=== PATIENT | male | born 1970 | race Caucasian/White ===

== ENCOUNTER 2022-09-23 11:48 | Emergency (ER) | payer MEDICAID, OTHER ==
[~2022-09-23] VITALS: Ht 167.6 cm; Wt 70.0 kg
[2022-09-23 12:38] LABS: BASOPHILS % 0.6 % (0.0-2.0); EOSINOPHILS % 1.2 % (0.0-5.0); HEMATOCRIT. 41.1 % (42.0-52.0); HEMOGLOBIN. 13.9 g/dL (14.0-18.0); LYMPHOCYTES % 27.7 % (20.0-50.0); MEAN CORPUSCULAR HEMOGLOBIN 30.6 pg (28.0-32.0); MEAN CORPUSCULAR VOLUME 90.6 fL (80.0-94.0); MEAN PLATELET VOLUME 8.7 fl (7.4-10.4); MONOCYTES % 8.3 % (2.0-8.0); NEUTROPHILS % 62.2 % (40.0-76.0); PLATELET 124 x1000/uL (130-400); RED BLOOD CELL COUNT 4.54 mill/uL (4.7-6.1); RED CELL DISTRIBUTION WIDTH 15.6 % (11.6-14.6)
[2022-09-23 12:47] LABS: CHLORIDE 101 mEq/L (98-107)
[2022-09-23 13:02] LABS: CLARITY URINE CLEAR (CLEAR); COLOR URINE YELLOW (YELLOW); KETONES URINE NEGATIVE (NEGATIVE); LEUKOCYTE ESTERASE URINE NEGATIVE (NEGATIVE); NITRITE URINE NEGATIVE (NEGATIVE); OCCULT BLOOD URINE TRACE (NEGATIVE); PROTEIN URINE 2+ (NEGATIVE); UROBILINOGEN URINE 0.2 E.U./dL (0.2-1.0)
[2022-09-23 13:32] LABS: ETHANOL BLOOD 372 mg/dL (-10)
[2022-09-23 13:39] LABS: *AMPHETAMINES SCREEN URINE NEGATIVE (NEGATIVE); *BARBITURATES SCREEN URINE NEGATIVE (NEGATIVE); *BENZODIAZEPINES SCREEN URINE NEGATIVE (NEGATIVE); *COCAINE SCREEN URINE NEGATIVE (NEGATIVE); CANNABINOID URINE SCREEN NEGATIVE (NEGATIVE); METHADONE URINE SCREEN NEGATIVE (NEGATIVE); OPIATES URINE SCREEN NEGATIVE (NEGATIVE); PHENCYCLIDINE URINE SCREEN NEGATIVE (NEGATIVE)
[2022-09-23] MEDS ORDERED: SODIUM CHLORIDE 0.9% 1,000 ML IV ONE (13:45)
[2022-09-23] MEDS ORDERED: INSULIN REGULAR (HUMULIN R) 300UNITS/3ML VIAL SUBCUT ONE (13:45)
[2022-09-23 16:46] VITALS: BP 139/89
== END 2022-09-23 17:31 | disposition home or self-care (01) ==
LOC: ER 11:48 → EDBD 11:48 → ER 17:31
DX: F10.129 Alcohol abuse with intoxication, unspecified (principal); E11.65 Type 2 diabetes mellitus with hyperglycemia; F17.200 Nicotine dependence, unspecified, uncomplicated; R51.9 Headache, unspecified; Y90.8 Blood alcohol level of 240 mg/100 ml or more
CPT/HCPCS: 36415; 70450; 80053; 80305; 80307; 80320; 80329; 81003; 82962; 85025; 96360; 96372; 99285; J1815; J7030; G0480

== ENCOUNTER 2022-11-17 09:09 | Emergency (ER) | payer MEDICAID, OTHER ==
[~2022-11-17] VITALS: Ht 172.7 cm; Wt 77.0 kg
[2022-11-17 09:10] VITALS: BP 160/85; RESP 20; TEMP 98.2; O2SAT 98
[2022-11-17 09:13] VITALS: PULSE 98
[2022-11-17 10:04] LABS: BASOPHILS % 1.5 % (0.0-2.0); EOSINOPHILS % 2.2 % (0.0-5.0); HEMATOCRIT. 39.9 % (42.0-52.0); HEMOGLOBIN. 13.7 g/dL (14.0-18.0); LYMPHOCYTES % 25.9 % (20.0-50.0); MEAN CORPUSCULAR HEMOGLOBIN 30.9 pg (28.0-32.0); MEAN PLATELET VOLUME 8.1 fl (7.4-10.4); MONOCYTES % 5.8 % (2.0-8.0); NEUTROPHILS % 64.6 % (40.0-76.0); PLATELET 282 x1000/uL (130-400); RED BLOOD CELL COUNT 4.44 mill/uL (4.7-6.1); RED CELL DISTRIBUTION WIDTH 15.3 % (11.6-14.6)
[2022-11-17 10:11] LABS: CHLORIDE 99 mEq/L (98-107)
[2022-11-17 10:22] LABS: ETHANOL BLOOD 391 mg/dL (-10)
== END 2022-11-17 13:09 | disposition left against medical advice (07) ==
LOC: ER 09:09
DX: Z53.21 Procedure and treatment not carried out due to patient leaving prior to being seen by health care provider (principal)
CPT/HCPCS: 36415; 80053; 80320; 85025; 99281; 99283; G0480

== ENCOUNTER 2023-07-27 13:09 | Emergency (ER) | payer MEDICAID, OTHER ==
[~2023-07-27] VITALS: Ht 175.3 cm; Wt 82.0 kg
[2023-07-27 13:15] VITALS: BP 124/75; PULSE 96; RESP 18; TEMP 99; O2SAT 98
[2023-07-27] MEDS ORDERED: IBUP-2029 MT (14:46)
[2023-07-27] MEDS ORDERED: BENZ1LOZ73 MT (14:47)
== END 2023-07-27 15:01 | disposition home or self-care (01) ==
LOC: ER 13:09
DX: J06.9 Acute upper respiratory infection, unspecified (principal); E11.9 Type 2 diabetes mellitus without complications
CPT/HCPCS: 71045; 99283

== ENCOUNTER 2024-01-08 15:24 | Emergency (ER) | payer MEDICAID, OTHER ==
[~2024-01-08] VITALS: Ht 172.7 cm; Wt 85.0 kg
[~2024-01-08 15:24] MED LIST: BENZ1LOZ73 MT; IBUP-2029 MT
[2024-01-08 15:25] VITALS: O2SAT 97
[2024-01-08 15:40] VITALS: BP 138/86; PULSE 89; RESP 17; TEMP 98.4; O2SAT 96
== END 2024-01-08 17:01 | disposition left against medical advice (07) ==
LOC: ER 15:24
DX: F10.129 Alcohol abuse with intoxication, unspecified (principal); E11.9 Type 2 diabetes mellitus without complications; Y90.9 Presence of alcohol in blood, level not specified
CPT/HCPCS: 99281

== ENCOUNTER 2024-02-29 12:00 | Emergency (ER) | payer MEDICAID ==
[~2024-02-29] VITALS: Ht 175.3 cm; Wt 64.0 kg
[2024-02-29 12:28] VITALS: BP 114/76; PULSE 106; RESP 16; TEMP 98.3; O2SAT 95
== END 2024-02-29 16:43 | disposition left against medical advice (07) ==
LOC: ER 12:00
DX: R11.10 Vomiting, unspecified (principal); Z53.21 Procedure and treatment not carried out due to patient leaving prior to being seen by health care provider